=== PATIENT | female | born 1960 | race Caucasian/White ===

== ENCOUNTER 2017-06-05 17:09 | Emergency (ER) | payer OTHER | END 2017-06-05 19:35 | disposition home or self-care (01) | LOC: D.ER 17:09 | DX: S63.91XA Sprain of unspecified part of right wrist and hand, initial encounter (principal); W22.8XXA Striking against or struck by other objects, initial encounter; Y93.89 Activity, other specified; Y92.019 Unspecified place in single-family (private) house as the place of occurrence of the external cause; F17.200 Nicotine dependence, unspecified, uncomplicated ==

== ENCOUNTER 2017-10-11 10:27 | Emergency (ER) | payer OTHER ==
[2017-10-11 11:19] LABS: APPEARANCE CLEAR (CLEAR); BILIRUBIN NEGATIVE (NEGATIVE); COLOR YELLOW (YELLOW); GLUCOSE NEGATIVE (NEGATIVE); KETONE NEGATIVE (NEGATIVE); NITRITE NEGATIVE (NEGATIVE); PROTEIN NEGATIVE (NEGATIVE); UROBILINOGEN NORMAL (NORMAL)
[2017-10-11 11:20] LABS: BACTERIA MODERATE /hpf (NONE SEEN); EPITHELIAL CELLS 0-5 /hpf (0-5); RED CELLS - URINE RARE /hpf (0-5); WHITE CELLS - URINE 0-5 /hpf (0-5)
== END 2017-10-11 12:17 | disposition home or self-care (01) ==
LOC: D.ER 10:27
PROVIDERS: Family Medicine
DX: M17.12 Unilateral primary osteoarthritis, left knee (principal); S80.212A Abrasion, left knee, initial encounter; W19.XXXA Unspecified fall, initial encounter; Y93.89 Activity, other specified; Y92.019 Unspecified place in single-family (private) house as the place of occurrence of the external cause; J20.9 Acute bronchitis, unspecified; F17.200 Nicotine dependence, unspecified, uncomplicated

== ENCOUNTER → 2017-11-22 16:30 | Outpatient (CLI) | payer OTHER | END | disposition home or self-care (01) | LOC: D.MAMMO 10-19 14:15 | DX: Z12.31 Encounter for screening mammogram for malignant neoplasm of breast (principal) ==

== ENCOUNTER 2017-11-28 13:01 | Emergency (ER) | payer OTHER | END 2017-11-28 16:00 | disposition home or self-care (01) | LOC: D.ER 13:01 | DX: S76.011A Strain of muscle, fascia and tendon of right hip, initial encounter (principal); X58.XXXA Exposure to other specified factors, initial encounter; Y93.89 Activity, other specified; Y92.89 Other specified places as the place of occurrence of the external cause; B34.9 Viral infection, unspecified; F17.200 Nicotine dependence, unspecified, uncomplicated ==

== ENCOUNTER 2017-12-18 13:12 | Inpatient (IN) | payer SELFPAY ==
[~2017-12-18] VITALS: Ht 160 cm; Wt 63.6 kg
--- NOTE | ~2017-12-18 | CN ---
PATIENT NAME:SAMARA TAMEZ MEDICAL RECORD: [id number] : 62 LOCATION:[id number] ADMIT DATE: 12/18/17 ACCOUNT: [id number] CONSULTING PHYSICIAN: SAMMI MIRANDA MD REFERRING PHYSICIAN: CARMITA ELIZABETH MD DATE OF CONSULTATION: 12/19/2017 CONSULT REQUESTING PHYSICIAN: Dr. Carmita Elizabeth. REASON FOR CONSULTATION: Bilateral pneumonia. HISTORY OF PRESENT ILLNESS: Ms. Tamez is a 57-year-old female, very poor historian. There is no family member. Available records on the patient, she is sick for the last few days. She has shortness of breath. She is coughing. She is wheezing. While in the ER, there was some dry blood noticed on the patient's face, but she denies any epistaxis, no hemoptysis. Denies any chest pain. REVIEW OF SYSTEMS: As in history of present illness. PAST MEDICAL HISTORY: Chronic tobacco dependence syndrome, no documented COPD. PERSONAL SOCIAL HISTORY: The patient is an ex-smoker. She is now electronic cigarettes. FAMILY HISTORY: Nonobtainable. PHYSICAL EXAMINATION: GENERAL: Now, the patient is lying comfortably in bed. She is not in acute distress. VITAL SIGNS: The blood pressure is 107/65, pulse is 100, respirations 18, temperature 98.8, and SPO2 is 93% on room air. HEENT: Conjunctivae are pink. Sclerae nonicteric. NECK: Neck is supple, no JVD. CHEST: The chest excursion is minimal on both sides. There are bilateral crackles, wheeze on forceful expiration. HEART: Rhythm regular, normal sound, no murmur. ABDOMEN: Abdomen is soft. Bowel sounds present. No hepatosplenomegaly. RECTAL: Deferred. EXTREMITIES: No cyanosis, no clubbing, and no pedal edema. SKIN: The skin is warm, normal turgor. CENTRAL NERVOUS SYSTEM: The patient is awake and alert. There is no obvious cranial nerve abnormality. The gait was not tested. LABORATORY DATA AND DIAGNOSTIC STUDIES: She had a CT scan of the chest, there is bilateral infiltrate. There is cholelithiasis. CT scan of the head is negative. CBC: WBC 14.3, hemoglobin 12.2, hematocrit 35.7, and the platelet count 224. ABG on admission, the pH was 7.40, pCO2 of 40.3, and the pO2 of 60. IMPRESSION: 1. Bilateral pneumonia, most likely community-acquired pneumonia. 2. Leukocytosis secondary to pneumonia. 3. Acute cough. 4. Tobacco dependence, suspect underlying chronic obstructive pulmonary disease with exacerbation. CONSULT REPORT [id number] SAMARA TAMEZ PLAN: 1. Continue Zithromax and Rocephin. 2. Xopenex and ipratropium nebulizer. 3. Methylprednisolone IV. 4. Watch for epistaxis or hemoptysis. 5. Follow up labs and chest radiograph in the morning. Dr. Elizabeth, thank you for involving me in the care of Ms. Tamez. TRANSINT:[id number] Voice Confirmation ID: [id number] DOCUMENT ID: [id number] SAMMI MIRANDA MD at 1340 CC: CARMITA ELIZABETH [phone] DICTATION DATE: 12/19/17 1515 [employer] PAINTER: 12/19/17 2303 DIS IN 12/20/17 [id number] [place] [address]
[2017-12-18 13:42] LABS: BASOPHILS 0.1 % (0-2); HEMATOCRIT 35.7 % (36.0-48.0); HEMOGLOBIN 12.2 g/dL (12-16); IMMATURE GRANULOCYTES 0.3 % (0-5); LYMPHOCYTES 12.3 % (15-50); MCH 30.3 pg (26.0-34.0); MCHC 34.2 g/dL (31.0-37.0); MCV 88.6 fL (80.0-100.0); MEAN PLATELET VOLUME 9.3 fL (7.4-10.4); MONOCYTES 4.7 % (2-11); NEUTROPHILS 81.6 % (40-80); PLATELET COUNT 224 10x3/uL (130-400); RBC 4.03 10x6/uL (4.00-5.40); RDW 12.5 % (11.5-14.5); WBC 14.3 10x3/uL (4.8-10.8)
[2017-12-18 14:02] LABS: ALBUMIN 3.5 g/dL (3.4-5.0); ALKALINE PHOSPHATASE 47 U/L (46-116); ALT (SGPT) 23 U/L (10-68); BILIRUBIN - TOTAL 1.15 mg/dL (0.2-1.3); CALC OSMOLALITY 248 mosm/kg (275-300); CALCIUM 8.6 mg/dL (8.5-10.1); CARBON DIOXIDE 23.5 mmol/L (21.0-32.0); CHLORIDE - SERUM 102 mmol/L (98-107); CREATININE - SERUM 0.8 mg/dL (0.6-1.3); GLUCOSE 116 mg/dL (74-106); SODIUM 123 mmol/L (136-145); TROPONIN-I < 0.017 ng/mL (0.000-0.060); UREA NITROGEN 13 mg/dL (7-18); eGFR NON AFRICAN AMERICAN 78 mL/min (90-120)
[2017-12-18 14:03] LABS: POTASSIUM - SERUM 3.6 mmol/L (3.5-5.1)
[2017-12-18 15:10] LABS: UDS - AMPHET POSITIVE QUAL (NEGATIVE); UDS - BARB NEGATIVE QUAL (NEGATIVE); UDS - BENZO NEGATIVE QUAL (NEGATIVE); UDS - COCAINE NEGATIVE QUAL (NEGATIVE); UDS - OPIATE NEGATIVE QUAL (NEGATIVE); UDS - PCP NEGATIVE QUAL (NEGATIVE); UDS - THC NEGATIVE QUAL (NEGATIVE)
[2017-12-18 15:12] LABS: MAGNESIUM - SERUM 1.4 mg/dL (1.8-2.4)
[2017-12-18 15:20] LABS: INR 1.21 (0.85-1.17); PROTIME 14.8 SECONDS (11.6-15.0)
[2017-12-18 15:22] LABS: D-DIMER-QUANTITATIVE 0.45 ug/mLFEU (0.20-0.54)
[2017-12-18 18:25] LABS: APPEARANCE CLEAR (CLEAR); BILIRUBIN NEGATIVE (NEGATIVE); COLOR YELLOW (YELLOW); GLUCOSE NEGATIVE (NEGATIVE); KETONE NEGATIVE (NEGATIVE); NITRITE NEGATIVE (NEGATIVE); PROTEIN NEGATIVE (NEGATIVE); SPECIFIC GRAVITY 1.015 (1.005-1.020); UROBILINOGEN NORMAL (NORMAL)
[2017-12-18 21:41] VITALS: BP 96/61; Ht 160 cm; Wt 63.6 kg
[2017-12-18] MEDS ORDERED: CYCLOBENZAPRINE10 MG (22:20)
[2017-12-18] MEDS ORDERED: LOXAPINE50 MG PO (22:24)
[2017-12-18] MEDS ORDERED: BENZTROPINE MESY2 MG PO (22:25)
[2017-12-18] MEDS ORDERED: KLONOPIN1 MG PO (22:26)
[2017-12-18 22:58] VITALS: BP 96/61
[2017-12-19 05:44] VITALS: BP 98/64
[2017-12-19 09:00] VITALS: BP 110/60
[2017-12-19 12:28] LABS: BASOPHILS 0.2 % (0-2); EOSINOPHILS 6.2 % (0-7); HEMATOCRIT 31.5 % (36.0-48.0); HEMOGLOBIN 10.3 g/dL (12-16); IMMATURE GRANULOCYTES 0.2 % (0-5); LYMPHOCYTES 16.6 % (15-50); MCH 29.9 pg (26.0-34.0); MCHC 32.7 g/dL (31.0-37.0); MONOCYTES 5.4 % (2-11); NEUTROPHILS 71.4 % (40-80); PLATELET COUNT 252 10x3/uL (130-400); RBC 3.45 10x6/uL (4.00-5.40); RDW 12.7 % (11.5-14.5)
[2017-12-19 12:29] LABS: MCV 91.3 fL (80.0-100.0); WBC 9.3 10x3/uL (4.8-10.8)
[2017-12-19 12:42] LABS: ALBUMIN 2.9 g/dL (3.4-5.0); ALKALINE PHOSPHATASE 47 U/L (46-116); ALT (SGPT) 19 U/L (10-68); BILIRUBIN - TOTAL 0.34 mg/dL (0.2-1.3); CALCIUM 8.6 mg/dL (8.5-10.1); CHLORIDE - SERUM 107 mmol/L (98-107); CREATININE - SERUM 0.8 mg/dL (0.6-1.3); GLUCOSE 85 mg/dL (74-106); POTASSIUM - SERUM 3.2 mmol/L (3.5-5.1); PROTEIN - SERUM 6.2 g/dL (6.4-8.2); SODIUM 141 mmol/L (136-145); eGFR NON AFRICAN AMERICAN 78 mL/min (90-120)
[2017-12-19 12:43] LABS: CALC OSMOLALITY 277 mosm/kg (275-300); CARBON DIOXIDE 29.4 mmol/L (21.0-32.0); UREA NITROGEN 7 mg/dL (7-18)
[2017-12-19 13:13] VITALS: BP 107/65
[2017-12-19] MEDS ORDERED: TOPROL XL25 MG PO (15:33)
[2017-12-19 16:58] VITALS: BP 97/70
[2017-12-19 23:07] VITALS: BP 87/53
[2017-12-20 05:06] VITALS: BP 85/53
[2017-12-20 05:13] LABS: BASOPHILS 0.1 % (0-2); EOSINOPHILS 0.1 % (0-7); HEMATOCRIT 33.3 % (36.0-48.0); HEMOGLOBIN 10.7 g/dL (12-16); IMMATURE GRANULOCYTES 0.1 % (0-5); LYMPHOCYTES 8.7 % (15-50); MCH 29.2 pg (26.0-34.0); MCHC 32.1 g/dL (31.0-37.0); MONOCYTES 2.7 % (2-11); NEUTROPHILS 88.3 % (40-80); RBC 3.66 10x6/uL (4.00-5.40); RDW 12.5 % (11.5-14.5)
[2017-12-20 05:27] LABS: PLATELET COUNT 308 10x3/uL (130-400)
[2017-12-20 05:34] LABS: ALBUMIN 2.8 g/dL (3.4-5.0); ALKALINE PHOSPHATASE 44 U/L (46-116); ALT (SGPT) 18 U/L (10-68); BILIRUBIN - TOTAL 0.28 mg/dL (0.2-1.3); CALCIUM 8.8 mg/dL (8.5-10.1); CARBON DIOXIDE 27.3 mmol/L (21.0-32.0); CHLORIDE - SERUM 109 mmol/L (98-107); CREATININE - SERUM 0.7 mg/dL (0.6-1.3); PROTEIN - SERUM 6.3 g/dL (6.4-8.2); SODIUM 143 mmol/L (136-145); eGFR NON AFRICAN AMERICAN > 90 mL/min (90-120)
[2017-12-20 05:39] LABS: CALC OSMOLALITY 286 mosm/kg (275-300); GLUCOSE 148 mg/dL (74-106); POTASSIUM - SERUM 3.7 mmol/L (3.5-5.1); UREA NITROGEN 9 mg/dL (7-18)
[2017-12-20 08:16] VITALS: BP 94/67
[2017-12-20 12:21] VITALS: BP 109/74
[2017-12-20] MEDS ORDERED: LEVAQUIN500 MG PO (15:56)
== END 2017-12-20 16:30 | disposition home or self-care (01) | DRG 195 ==
LOC: D.ER 13:12 → D.MS 19:00
PROVIDERS: Emergency Medicine; Family Medicine; Nurse Practitioner Family
DX: J18.9 Pneumonia, unspecified organism (principal); F17.290 Nicotine dependence, other tobacco product, uncomplicated

== ENCOUNTER 2017-12-30 13:57 | Emergency (ER) | payer OTHER ==
[2017-12-18 21:41] VITALS: BMI 24.8
[~2017-12-30 13:57] MED LIST: BENZTROPINE MESY2 MG PO; CYCLOBENZAPRINE10 MG; KLONOPIN1 MG PO; LEVAQUIN500 MG PO; LOXAPINE50 MG PO; TOPROL XL25 MG PO
[2017-12-30 14:54] LABS: BASOPHILS 0.4 % (0-2); EOSINOPHILS 1.1 % (0-7); HEMATOCRIT 37.1 % (36.0-48.0); HEMOGLOBIN 12.3 g/dL (12-16); IMMATURE GRANULOCYTES 0.2 % (0-5); LYMPHOCYTES 20.3 % (15-50); MCH 29.9 pg (26.0-34.0); MCHC 33.2 g/dL (31.0-37.0); MEAN PLATELET VOLUME 8.4 fL (7.4-10.4); MONOCYTES 7.3 % (2-11); NEUTROPHILS 70.7 % (40-80); PLATELET COUNT 290 10x3/uL (130-400); RBC 4.12 10x6/uL (4.00-5.40); RDW 12.5 % (11.5-14.5); WBC 11.3 10x3/uL (4.8-10.8)
[2017-12-30 15:12] LABS: APPEARANCE CLEAR (CLEAR); BILIRUBIN NEGATIVE (NEGATIVE); COLOR DK YELLOW (YELLOW); GLUCOSE NEGATIVE (NEGATIVE); KETONE NEGATIVE (NEGATIVE); NITRITE NEGATIVE (NEGATIVE); PROTEIN TRACE mg/dL (NEGATIVE); UROBILINOGEN NORMAL (NORMAL)
[2017-12-30 15:13] LABS: BACTERIA MODERATE /hpf (NONE SEEN); EPITHELIAL CELLS 0-5 /hpf (0-5); MUCUS <1+ /lpf (NONE SEEN); RED CELLS - URINE 0-5 /hpf (0-5); WHITE CELLS - URINE 0-5 /hpf (0-5); YEAST NONE SEEN /hpf (NONE SEEN)
[2017-12-30 15:16] LABS: UDS - AMPHET POSITIVE QUAL (NEGATIVE); UDS - BARB NEGATIVE QUAL (NEGATIVE); UDS - BENZO NEGATIVE QUAL (NEGATIVE); UDS - COCAINE NEGATIVE QUAL (NEGATIVE); UDS - OPIATE NEGATIVE QUAL (NEGATIVE); UDS - PCP NEGATIVE QUAL (NEGATIVE); UDS - THC NEGATIVE QUAL (NEGATIVE)
[2017-12-30 15:26] LABS: ALBUMIN 4.2 g/dL (3.4-5.0); ANION GAP 16.2 mmol/L (8-16); BILIRUBIN - TOTAL 0.8 mg/dL (0.2-1.3); CARBON DIOXIDE 22.2 mmol/L (21.0-32.0); CREATININE - SERUM 0.9 mg/dL (0.6-1.3); POTASSIUM - SERUM 3.4 mmol/L (3.5-5.1); PROTEIN - SERUM 7.4 g/dL (6.4-8.2)
== END 2017-12-31 11:44 | disposition short-term general hospital (02) ==
LOC: D.ER 13:57
PROVIDERS: Family Medicine
DX: F23 Brief psychotic disorder (principal); F15.10 Other stimulant abuse, uncomplicated; Z86.59 Personal history of other mental and behavioral disorders

== ENCOUNTER → 2018-11-22 16:38 | Outpatient (CLI) | payer OTHER ==
[2017-12-18 21:41] VITALS: BMI 24.8
== END | disposition home or self-care (01) ==
LOC: D.MAMMO 08:30
DX: Z12.31 Encounter for screening mammogram for malignant neoplasm of breast (principal)